=== PATIENT | female | born 1975 | race Caucasian/White ===

== ENCOUNTER → 2018-08-04 09:01 | Outpatient (CLI) | payer OTHER, MEDICAID, SELFPAY ==
[2018-08-04 09:52] LABS: Add Manual Diff / Slide Review NO; Basophils Percent Auto 0.8 % (0-2); Eosinophils Percent Auto 4.2 % (2-4); Hematocrit 40.3 % (36-46); Hemoglobin 13.4 g/dL (12.0-16.0); Lymphocytes Percent Auto 35.7 % (25-40); Mean Corpuscular HGB Conc 33.3 % (30-36); Mean Corpuscular Hemoglobin 29.8 PG (26-34); Mean Corpuscular Volume 89.4 fL (80-100); Monocytes Percent Auto 10.9 % (3-14); Neutrophils Absolute Auto 2400 /uL (3000-5900); Neutrophils Percent Auto 48.4 % (50-75); Platelet Count 275 X10^3/uL (150-400); Red Blood Cell Count 4.51 X10^6/uL (4.0-5.2); White Blood Cell Count 4.9 X10^3/uL (4.5-11.0)
[2018-08-04 10:14] LABS: Cholesterol 185 mg/dL (140-199); HDL Cholesterol 67 mg/dL (40-60); LDL Cholesterol Calculated 100 mg/dL (<100); Triglycerides 89 mg/dL (35-150)
[2018-08-04 10:26] LABS: Free T4, Direct Thyroxine 1.23 ng/dL (0.78-2.19)
[2018-08-04 10:28] LABS: Vitamin D 25 Hydroxy (D3) 34.5 ng/mL (30.0-100.0)
[2018-08-04 10:40] LABS: Thyroid Stimulating Hormone 0.29 uIU/mL (0.47-4.68)
== END ==
PROVIDERS: Visit Provider Student in an Organized Health Care Education/Training Program
DX: E03.9 Hypothyroidism, unspecified (principal); E55.9 Vitamin D deficiency, unspecified; E78.2 Mixed hyperlipidemia; J30.2 Other seasonal allergic rhinitis
CPT/HCPCS: 36415; 80061; 82306; 84439; 84443; 85025

== ENCOUNTER → 2019-05-25 14:02 | Outpatient (CLI) | payer OTHER, SELFPAY ==
--- NOTE | 2019-05-25 14:06 | DI.RAD.S_ITS ---
PROCEDURE: XR CHEST 2V INDICATIONS: cough TECHNIQUE: 2 views of the chest were acquired. COMPARISON: None. FINDINGS: Surgical changes and devices: None. Lungs and pleura: Lungs are clear. No pleural effusions or pneumothorax. Mediastinum: Mediastinal contours are normal. Heart size is normal. Bones and chest wall: No suspicious bony abnormalities. Soft tissues appear unremarkable. IMPRESSION: No evidence acute pulmonary process. Dictated by: Khai Michele M.D. on 05/25/2019 at 14:38 Approved by: Khai Michele M.D. on 05/25/2019 at 14:40
== END ==
PROVIDERS: Family Provider Student in an Organized Health Care Education/Training Program; PCP Student in an Organized Health Care Education/Training Program; Visit Provider Physician Assistant
DX: R05 Cough (principal)
CPT/HCPCS: 71046

== ENCOUNTER → 2019-05-31 07:58 | Outpatient (CLI) | payer OTHER, SELFPAY ==
[2019-05-31 08:35] LABS: Add Manual Diff / Slide Review NO; Basophils Absolute Auto 100 /uL (0-100); Eosinophils Absolute Auto 200 /uL (0-450); Eosinophils Percent Auto 3.4 % (2-4); Hematocrit 40.8 % (36-46); Hemoglobin 14.1 g/dL (12.0-16.0); Lymphocytes Absolute Auto 1800 /uL (1100-4500); Mean Corpuscular HGB Conc 34.5 % (30-36); Mean Corpuscular Hemoglobin 30.2 PG (26-34); Mean Corpuscular Volume 87.5 fL (80-100); Monocytes Absolute Auto 600 /uL (0-900); Monocytes Percent Auto 11.7 % (3-14); Neutrophils Absolute Auto 2500 /uL (1500-7000); Neutrophils Percent Auto 48.9 % (50-75); Platelet Count 335 X10^3/uL (150-400); Red Blood Cell Count 4.66 X10^6/uL (4.0-5.2); Red Cell Distribution Width 13.5 % (11.6-14.8); White Blood Cell Count 5.2 X10^3/uL (4.5-11.0)
[2019-05-31 09:01] LABS: Alanine Aminotransferase 18 IU/L (9-52); Albumin 4.4 g/dL (3.5-5.0); Albumin Globulin Ratio 1.3 (1.0-2.8); Alkaline Phosphatase 42 U/L (38-126); Aspartate Aminotransferase 28 IU/L (14-36); Bilirubin Total 0.6 mg/dL (0.2-1.3); Blood Urea Nitrogen 12 mg/dL (7-17); Calcium 9.7 mg/dL (8.4-10.2); Carbon Dioxide 27 mmol/L (22-32); Chloride 101 mmol/L (98-107); Estimated Glomerular Filt Rate > 60.0 mL/min (>60); Globulin 3.3 g/dL (1.7-4.1); Glucose 88 mg/dL (70-100); HEMOLYSIS < 15 (0-50); Potassium 4.1 mmol/L (3.4-5.1); Sodium 139 mmol/L (137-145); Total Protein 7.7 g/dL (6.3-8.2)
[2019-05-31 09:19] LABS: Vitamin D 25 Hydroxy (D3) 35.2 ng/mL (30.0-100.0)
[2019-05-31 09:31] LABS: Thyroid Stimulating Hormone 2.05 uIU/mL (0.47-4.68)
[2019-05-31 09:32] LABS: Cortisol AM (Before 10AM) 7.32 ug/dL (4.46-22.7)
[2019-05-31 09:51] LABS: Vitamin B12 596 pg/mL (239-931)
[2019-06-03 14:31] LABS: ANA Screen, IFA NEGATIVE (NEGATIVE)
== END ==
PROVIDERS: PCP Student in an Organized Health Care Education/Training Program; Visit Provider Student in an Organized Health Care Education/Training Program
DX: E03.9 Hypothyroidism, unspecified (principal); E05.00 Thyrotoxicosis with diffuse goiter without thyrotoxic crisis or storm; R53.83 Other fatigue; Z79.899 Other long term (current) drug therapy; E55.9 Vitamin D deficiency, unspecified
CPT/HCPCS: 36415; 80053; 82306; 82533; 82607; 84443; 85025; 86038

== ENCOUNTER → 2019-06-14 07:57 | Outpatient (CLI) | payer OTHER, SELFPAY ==
--- NOTE | 2019-06-14 | DI.MG.S_ITS ---
BILATERAL DIGITAL SCREENING MAMMOGRAM 3D/2D WITH CAD: 06/14/2019 CLINICAL: Routine screening. Comparison is made to exams dated: 04/22/2017 mammogram and 04/29/2018 mammogram - [facility]. The tissue of both breasts is heterogeneously dense. This may lower the sensitivity of mammography. Current study was also evaluated with a Computer Aided Detection (CAD) system. No significant masses, calcifications, or other findings are seen in either breast. There has been no significant interval change. IMPRESSION: NEGATIVE There is no mammographic evidence of malignancy. A 1 year screening mammogram is recommended. This exam was interpreted at Station ID: [id number]. NOTE: For mammograms, a report in lay terms will be sent to the patient. Approximately 15% of breast malignancies will not be visualized mammographically. In the management of a palpable breast mass, a negative mammogram must not discourage biopsy of a clinically suspicious lesion. Electronically Signed By: Talya dallas/rob:06/14/2019 10:49:10 letter sent: Normal Exam ACR BI-RADS Category 1: Negative 3341F
== END ==
PROVIDERS: PCP Student in an Organized Health Care Education/Training Program; Visit Provider Student in an Organized Health Care Education/Training Program
DX: Z12.31 Encounter for screening mammogram for malignant neoplasm of breast (principal)
CPT/HCPCS: 77063; 77067

== ENCOUNTER → 2019-09-13 15:29 | Outpatient (CLI) | payer OTHER, SELFPAY ==
[2019-09-13 17:47] LABS: TSH w/ Reflex to FT4 1.79 uIU/mL (0.47-4.68)
== END ==
PROVIDERS: PCP Student in an Organized Health Care Education/Training Program; Visit Provider Student in an Organized Health Care Education/Training Program
DX: E03.9 Hypothyroidism, unspecified (principal)
CPT/HCPCS: 36415; 84443

== ENCOUNTER → 2020-04-18 15:46 | Outpatient (CLI) | payer OTHER, SELFPAY ==
--- NOTE | 2020-04-18 15:47 | DI.US.S_ITS ---
PROCEDURE: US PELVIC COMPLETE INDICATIONS: IRREGULAR MENSES TECHNIQUE: Real-time scanning was performed of the pelvic organs, with image documentation. Additional endovaginal scanning was necessary due to incomplete visualization of the adnexal and endometrial structures by transabdominal scanning. COMPARISON: None. FINDINGS: Transabdominal scanning: A mild amount of free pelvic fluid is seen, which is considered to be within physiologic limits. Limited scanning through the kidneys shows no hydronephrosis. Endovaginal scanning: Uterus: Uterus is normal in size at 9 x 4.2 x 5.3 cm. The endometrium measures at the upper limits of normal at 17 mm in combined thickness. Incidental note is made of nabothian cysts. Ovaries: The right ovary measures 3.6 x 2.2 x 2.4 cm. The left ovary measures 3.9 x 2 x 2.6 cm. The ovaries have a normal sonographic appearance, with a dominant follicle within the left ovary that measures up to 1.9 cm, which may represent a corpus luteum. Within the right adnexal region, there are interconnecting cystic-appearing foci seen, which are at least partially involving the right ovary. The largest individual right ovarian cyst measures up to 4.5 x 1.7 x 2.8 cm IMPRESSION: The endometrial stripe measures at the upper limits of normal at 17 mm. The right ovary demonstrates abnormal cysts, with the largest individual cyst measuring up to 4.5 cm. Although several of the cysts are clearly associated with the right ovary, differential diagnosis also includes hydrosalpinx and paraovarian cysts. At clinical discretion, a followup pelvic ultrasound is suggested in 6 weeks to assure resolution/ improvement. Dictated by: Rodriguez Duron M.D. on 04/19/2020 at 11:47 Approved by: Rodriguez Duron M.D. on 04/19/2020 at 11:51
== END ==
PROVIDERS: PCP Student in an Organized Health Care Education/Training Program; Referring Provider Obstetrics & Gynecology; Visit Provider Obstetrics & Gynecology
DX: N92.6 Irregular menstruation, unspecified (principal); N83.201 Unspecified ovarian cyst, right side
CPT/HCPCS: 76830; 76856

== ENCOUNTER → 2020-05-03 08:14 | Outpatient (CLI) | payer OTHER, SELFPAY ==
[2020-05-03 10:25] LABS: Prolactin 12.6 ng/mL (3.0-18.6)
[2020-05-03 10:41] LABS: Thyroid Stimulating Hormone 2.61 uIU/mL (0.47-4.68)
== END ==
PROVIDERS: PCP Student in an Organized Health Care Education/Training Program; Referring Provider Obstetrics & Gynecology; Visit Provider Obstetrics & Gynecology
DX: E03.9 Hypothyroidism, unspecified (principal)
CPT/HCPCS: 36415; 83001; 84146; 84439; 84443

== ENCOUNTER → 2020-08-21 10:33 | Outpatient (CLI) | payer OTHER, SELFPAY ==
--- NOTE | 2020-08-21 10:34 | DI.US.S_ITS ---
PROCEDURE: US PELVIC COMPLETE INDICATIONS: F/U Ovarian cyst TECHNIQUE: Real-time scanning was performed of the pelvic organs, with image documentation. Additional endovaginal scanning was necessary due to incomplete visualization of the adnexal and endometrial structures by transabdominal scanning. COMPARISON: [facility], , US PELVIC COMPLETE, 04/18/2020, 16:19. FINDINGS: Transabdominal scanning: Limited scanning through the kidneys shows no hydronephrosis. No pathologic free abdominal or pelvic fluid. Endovaginal scanning: Uterus: Uterus is normal in size at 9.2 x 4.1 x 5.6 cm. The endometrium measures 6.3 mm in combined thickness. Ovaries: Right ovary measures 4.5 x 2.2 x 3.0 cm and the left 2.8 x 1.8 x 2.1 cm. There are 2 mildly complex cyst associated with the right ovary largest measuring 2.1 x 1.5 x 1.9 cm and the smaller 2.0 x 1.6 x 1.8 cm. Overall, cysts appear decreased in size compared to prior examination. IMPRESSION: Interval decrease in complex right ovarian cyst with the largest today measuring 2.1 x 1.5 x 1.9 cm. Continued sonographic surveillance to resolution is recommended. Dictated by: Alan JENSEN Interpreted: Talya Augustine MD on 08/21/2020 at 12:50 Approved by: Talya Augustine M.D. on 08/21/2020 at 15:00
== END ==
PROVIDERS: PCP Student in an Organized Health Care Education/Training Program; Referring Provider Obstetrics & Gynecology; Visit Provider Obstetrics & Gynecology
DX: N83.291 Other ovarian cyst, right side (principal)
CPT/HCPCS: 76830; 76856

== ENCOUNTER → 2020-09-27 08:59 | Outpatient (CLI) | payer OTHER, SELFPAY ==
[2020-09-27 09:13] LABS: RBC Urine None Seen (0-5/HPF)
[2020-09-27 09:56] LABS: Appearance Urine UA CLEAR; Bilirubin Urine UA NEGATIVE (NEGATIVE); Glucose Urine UA NEGATIVE (Negative); Ketones Urine UA NEGATIVE (NEGATIVE); Leukocyte Esterase Urine UA 1+ (NEGATIVE); Nitrite Urine UA NEGATIVE (Negative); Occult Blood Urine UA 1+ (Negative); Protein Urine UA NEGATIVE (Negative); Specific Gravity Urine UA <=1.005 (1.000-1.035); Urobilinogen Urine UA 0.2 E.U./dL (0.2)
[2020-09-27 10:21] LABS: Color Urine UA Straw; Squamous Epithelial Cell Urine 1-5 /HPF (0-5/HPF); WBC Urine 5-10/HPF (0-5/HPF); pH Urine UA 6.5 (4.5-8.0)
[2020-09-27 10:22] LABS: Bacteria Urine Few (2-10); Culture Indicated Urine Specimen Cultured
== END ==
PROVIDERS: Specialist; PCP Student in an Organized Health Care Education/Training Program; Referring Provider Student in an Organized Health Care Education/Training Program; Visit Provider Obstetrics & Gynecology
DX: R30.0 Dysuria (principal)
CPT/HCPCS: 81001; 87077; 87086; 87147; 87186

== ENCOUNTER → 2020-12-11 08:57 | Outpatient (CLI) | payer OTHER, SELFPAY ==
--- NOTE | 2020-12-11 08:59 | DI.US.S_ITS ---
PROCEDURE: US PELVIC COMPLETE INDICATIONS: THREE MONTH FOLLOW UP RIGHT OVARIAN CYSTS TECHNIQUE: Real-time scanning was performed of the pelvic organs, with image documentation. Additional endovaginal scanning was necessary due to incomplete visualization of the adnexal and endometrial structures by transabdominal scanning. COMPARISON: [facility], , PELVIC COMPLETE, 04/18/2020, 16:19. [facility], , PELVIC COMPLETE, 08/21/2020, 10:49. FINDINGS: Uterus: Uterus is anteverted and normal in size at 7.0 x 5.9 x 4.0 cm. The endometrium measures nine mm in combined thickness. Tiny nabothian cysts are present at the cervix. Ovaries: The right ovary measures 5.7 x 4.1 x 3.2 cm and contains several follicles. There are two dominant cysts, both multi lobulated and one septated, and both slightly larger compared to the prior study. 1 measures 2.5 x 2.2 x 1.5 cm, previously 2.1 x 1.9 x 1.5 cm. The 2nd measures 2.9 x 1.9 x 1.8 cm, previously about 2.0 x 1.8 x 1.6 cm. No significant change in morphology. There is peripheral vascularity in the ovary. No discrete internal vascularity or vascularized septation. The left ovary measures 3.0 x 2.6 x 1.8 cm and contains a peripherally vascular corpus luteum measuring 1.2 cm. . Other: No pathologic free abdominal or pelvic fluid. IMPRESSION: 1. Minimal size increase but without significant morphologic change in the minimally complicated right ovarian cystic structures. Consider annual follow-up. Dictated by: Kristy Franks M.D. on 12/11/2020 at 13:49 Approved by: Kristy Franks M.D. on 12/11/2020 at 14:00
== END ==
PROVIDERS: PCP Student in an Organized Health Care Education/Training Program; Referring Provider Obstetrics & Gynecology; Visit Provider Obstetrics & Gynecology
DX: N83.209 Unspecified ovarian cyst, unspecified side (principal)
CPT/HCPCS: 76830; 76856

== ENCOUNTER → 2020-12-25 10:35 | Outpatient (CLI) | payer OTHER, SELFPAY ==
[2020-12-25 12:53] LABS: Cancer Antigen 125 9.3 U/mL (0-35)
[2020-12-27 10:12] LABS: Human Epididymis Prot 4 43.5 pmol/L (0.0-63.6)
== END ==
PROVIDERS: PCP Student in an Organized Health Care Education/Training Program; Referring Provider Obstetrics & Gynecology; Visit Provider Obstetrics & Gynecology
DX: N83.201 Unspecified ovarian cyst, right side (principal)
CPT/HCPCS: 36415; 86304; 86305

== ENCOUNTER → 2021-02-06 11:11 | Outpatient (CLI) | payer OTHER, SELFPAY ==
--- NOTE | 2021-02-06 11:12 | DI.US.S_ITS ---
PROCEDURE: US PELVIC COMPLETE INDICATIONS: F/U Ovarian Cyst TECHNIQUE: Real-time scanning was performed of the pelvic organs, with image documentation. Additional endovaginal scanning was necessary due to incomplete visualization of the adnexal and endometrial structures by transabdominal scanning. COMPARISON: [facility], , US PELVIC COMPLETE, 12/11/2020, 10:11. FINDINGS: Uterus: Uterus is normal in size at 5.8 x 4.1 x 5.6 cm. The endometrium measures 4 mm in combined thickness. Ovaries: Right ovary measures 4.0 x 2.6 x 3.6 cm. Left ovary measures 1.6 x 1.9 x 1.2 cm. Multi cystic focus within the right ovary measures 2.3 x 2.1 x 2.3 cm and 2.8 x 1.7 x 2.7 cm. Corresponding foci on prior exam measured 2.5 x 2.2 x 1.5 cm and 2.9 x 1.9 x 1.8 cm. Other: No pathologic free abdominal or pelvic fluid. IMPRESSION: Persistent complex right ovarian cyst, questionably minimally more prominent. Continued interval follow-up is recommended as indicated. Dictated by: Mena Durham M.D. on 02/06/2021 at 16:33 Approved by: Mena Durham M.D. on 02/06/2021 at 16:35
== END ==
PROVIDERS: PCP Student in an Organized Health Care Education/Training Program; Referring Provider Obstetrics & Gynecology; Visit Provider Obstetrics & Gynecology
DX: N83.201 Unspecified ovarian cyst, right side (principal)
CPT/HCPCS: 76830; 76856

== ENCOUNTER → 2021-03-13 07:40 | Outpatient (CLI) | payer OTHER, SELFPAY ==
--- NOTE | 2021-03-13 07:41 | DI.US.S_ITS ---
PROCEDURE: US PELVIC COMPLETE INDICATIONS: OVARIAN CYST TECHNIQUE: Real-time scanning was performed of the pelvic organs, with image documentation. Additional endovaginal scanning was necessary due to incomplete visualization of the adnexal and endometrial structures by transabdominal scanning. COMPARISON: [facility], PELVIC COMPLETE, 04/18/2020, 16:19. [facility], PELVIC COMPLETE, 08/21/2020, 10:49. [facility], PELVIC COMPLETE, 12/11/2020, 10:11. [facility], PELVIC COMPLETE, 02/06/2021, 10:27. FINDINGS: Uterus: Uterus is normal in size at 9.2 x 4.4 x 6 cm. The endometrium measures 20 mm in combined thickness. Ovaries: The right ovary measures 3.3 x 2.2 x 3 8 cm and demonstrates simple appearing cystic follicles that measure up to 2.1 cm, which are considered to within physiologic limits. The left ovary measures 3.5 x 1.7 x 3.3 cm and demonstrates a complex cyst that measures 1.8 x 1.3.1.5 cm with minimal internal vascularity. This is new compared to prior examination. No adnexal masses are seen. Other: No pathologic free abdominal or pelvic fluid. IMPRESSION: No abnormal right ovarian cysts are now seen. There is a complex cyst now seen of the left ovary which may represent a hemorrhagic cyst. If it would be clinically appropriate, a followup pelvic ultrasound could be considered in 6 weeks to assure resolution/ improvement. The endometrial stripe is abnormally thickened at 20 mm. Dictated by: Rodriguez Duron M.D. on 03/13/2021 at 8:15 Approved by: Rodriguez Duron M.D. on 03/13/2021 at 8:19
== END ==
PROVIDERS: PCP Student in an Organized Health Care Education/Training Program; Referring Provider Obstetrics & Gynecology; Visit Provider Obstetrics & Gynecology
DX: N83.292 Other ovarian cyst, left side (principal); R93.89 Abnormal findings on diagnostic imaging of other specified body structures
CPT/HCPCS: 76830; 76856

== ENCOUNTER → 2021-06-08 15:40 | Outpatient (CLI) | payer OTHER, SELFPAY ==
--- NOTE | 2021-06-08 15:41 | DI.MG.S_ITS ---
BILATERAL DIGITAL SCREENING MAMMOGRAM 3D/2D WITH CAD: 06/08/2021 CLINICAL: Routine screening. Comparison is made to exams dated: 06/14/2019 mammogram - [facility], 04/29/2018 mammogram, and 04/22/2017 mammogram - [facility]. The tissue of both breasts is heterogeneously dense. This may lower the sensitivity of mammography. Current study was also evaluated with a Computer Aided Detection (CAD) system. No significant masses, calcifications, or other findings are seen in either breast. There has been no significant interval change. IMPRESSION: NEGATIVE There is no mammographic evidence of malignancy. A 1 year screening mammogram is recommended. This exam was interpreted at Station ID: [id number]. NOTE: For mammograms, a report in lay terms will be sent to the patient. Approximately 15% of breast malignancies will not be visualized mammographically. In the management of a palpable breast mass, a negative mammogram must not discourage biopsy of a clinically suspicious lesion. Electronically Signed By: Polo bowen/rob:06/08/2021 17:17:52 letter sent: Normal Exam ACR BI-RADS Category 1: Negative 3341F
--- NOTE | 2021-06-08 15:41 | DI.US.S_ITS ---
PROCEDURE: US PELVIC COMPLETE INDICATIONS: PELVIC PAIN TECHNIQUE: Real-time scanning was performed of the pelvic organs, with image documentation. Additional endovaginal scanning was necessary due to incomplete visualization of the adnexal and endometrial structures by transabdominal scanning. COMPARISON: [facility], US, US PELVIC COMPLETE, 03/13/2021, 8:11. FINDINGS: Uterus: Uterus is normal in size at 8.6 x 4.5 x 4.9 cm. The endometrium measures 8 0.7 mm in combined thickness. Ovaries: Physiologic cyst associated with the left ovary measuring 2.3 cm. Multiple simple cyst associated with the right ovary, largest measuring 2.6 cm. Other: No pathologic free abdominal or pelvic fluid. IMPRESSION: 1. Thickened endometrial complex. Short-term follow-up pelvic ultrasound in 6-12 weeks is recommended to assess for interval thinning. 2. Regressing left physiologic cyst and simple cysts involving the left ovary. Dictated by: Alan JENSEN Interpreted: Francesco Almaguer MD on 06/08/2021 at 16:35 Transcribed by: PARESH on 06/08/2021 at 16:36 Approved by: Francesco Almaguer M.D. on 06/08/2021 at 16:38
== END ==
PROVIDERS: PCP Student in an Organized Health Care Education/Training Program; Referring Provider Obstetrics & Gynecology; Visit Provider Obstetrics & Gynecology
DX: R10.2 Pelvic and perineal pain (principal); Z12.31 Encounter for screening mammogram for malignant neoplasm of breast; N83.202 Unspecified ovarian cyst, left side
CPT/HCPCS: 76830; 76856; 77063; 77067

== ENCOUNTER → 2022-03-13 08:03 | Outpatient (CLI) | payer OTHER, SELFPAY ==
[2022-03-13 09:43] LABS: Thyroid Stimulating Hormone 2.49 uIU/mL (0.47-4.68)
== END ==
PROVIDERS: PCP Family Medicine; Referring Provider Family Medicine; Visit Provider Family Medicine
DX: E03.9 Hypothyroidism, unspecified (principal)
CPT/HCPCS: 36415; 84443

== ENCOUNTER → 2022-03-14 15:10 | Outpatient (CLI) | payer OTHER, SELFPAY | PROVIDERS: PCP Family Medicine; Visit Provider Physician Assistant | DX: R10.2 Pelvic and perineal pain (principal) | CPT/HCPCS: 87086 ==

== ENCOUNTER → 2022-03-26 07:57 | Outpatient (CLI) | payer OTHER, SELFPAY ==
--- NOTE | 2022-03-26 07:58 | DI.US.S_ITS ---
PROCEDURE: US ABDOMEN COMPLETE INDICATIONS: BLOATING, NAUSEA TECHNIQUE: Real-time scanning was performed of the abdominal and retroperitoneal organs, with image documentation. COMPARISON: None. FINDINGS: Liver: Liver is normal in size and homogeneous in echotexture. Gallbladder: Normal. Biliary ducts: Intrahepatic bile ducts are non-dilated. Extrahepatic bile duct caliber measures 3 mm. Normal is 6-7 mm or less in diameter, or 10 mm or less post-cholecystectomy. Pancreas: Visualized portions of the pancreas are sonographically normal. Spleen: Spleen is normal in size and homogeneous in echotexture. Kidneys: Normal. Aorta: Visualized aorta is normal in caliber at less than 3 cm. Iliacs: Proximal common iliac arteries are normal in caliber at less than 2.5 cm. IVC: Intrahepatic inferior vena cava is patent. Miscellaneous: No free abdominal fluid. IMPRESSION: Normal study. Dictated by: Luis Antonio Deng M.D. on 03/26/2022 at 9:11 Approved by: Luis Antonio Deng M.D. on 03/26/2022 at 9:11
--- NOTE | 2022-03-26 07:58 | DI.US.S_ITS ---
PROCEDURE: US PELVIC COMPLETE INDICATIONS: PAIN, BLOATING TECHNIQUE: Real-time scanning was performed of the pelvic organs, with image documentation. Additional endovaginal scanning was necessary due to incomplete visualization of the adnexal and endometrial structures by transabdominal scanning. COMPARISON: [facility], US, US ABDOMEN COMPLETE, 03/26/2022, 8:04. [facility], US, US PELVIC COMPLETE, 06/08/2021, 15:58. FINDINGS: Uterus: Uterus is anteverted and normal in size at 8.4 x 4.4 x 5.8 cm. The myometrium is homogeneous. The endometrium measures 13-14 mm combined thickness, which is now considered to be within normal limits Ovaries: The right ovary measures 3.5 x 2 x 3.5 cm. The left ovary measures 3.1 x 2.6 x 1.6 cm. The ovaries have a normal sonographic appearance, with bilateral simple appearing cystic follicles seen involving each ovary, which are considered to be within physiologic limits. No adnexal masses are seen. Other: No pathologic free abdominal or pelvic fluid. IMPRESSION: The endometrial stripe measures 13-14 mm, which is considered to be within physiologic limits. Simple appearing cystic follicles can be seen involving each ovary, which are also considered to be within physiologic limits. We strive to produce accurate, complete, and clear reports of imaging services. To assist us in improving patient care, this report was composed using standard report templates and voice recognition software. Therefore, it may contain abnormal punctuation, insertions and/or omissions. Occasional wrong-word or sound-alike substitutions may occur. Though we review the report and make efforts to correct it, we do recommend that the report be read carefully in proper context to recognize any text inaccuracies. Dictated by: Rodriguez Duron M.D. on 03/26/2022 at 9:01 Approved by: Rodriguez Duron M.D. on 03/26/2022 at 9:03
== END ==
PROVIDERS: PCP Family Medicine; Referring Provider Physician Assistant; Visit Provider Physician Assistant
DX: R10.2 Pelvic and perineal pain (principal); R10.30 Lower abdominal pain, unspecified; R10.32 Left lower quadrant pain; R10.31 Right lower quadrant pain; R11.0 Nausea
CPT/HCPCS: 76700; 76830; 76856

== ENCOUNTER → 2022-04-09 12:33 | Outpatient (CLI) | payer OTHER, SELFPAY ==
[2022-04-09 13:21] LABS: Appearance Urine UA CLEAR; Bilirubin Urine UA NEGATIVE (NEGATIVE); Color Urine UA YELLOW; Glucose Urine UA NEGATIVE (Negative); Ketones Urine UA NEGATIVE (NEGATIVE); Leukocyte Esterase Urine UA NEGATIVE (NEGATIVE); Nitrite Urine UA NEGATIVE (Negative); Occult Blood Urine UA TRACE-LYSED (Negative); Protein Urine UA NEGATIVE (Negative); Urobilinogen Urine UA 0.2 E.U./dL (0.2)
[2022-04-09 13:22] LABS: pH Urine UA 6.5 (4.5-8.0)
[2022-04-09 13:34] LABS: Amorphous Sediment Urine 1+; Bacteria Urine Few (2-10); Culture Indicated Urine Cult Not Indicated; RBC Urine 0-1/HPF (0-5/HPF); Squamous Epithelial Cell Urine 5-10 /HPF (0-5/HPF); WBC Urine 1-5/HPF (0-5/HPF)
== END ==
PROVIDERS: PCP Family Medicine; Referring Provider Obstetrics & Gynecology; Visit Provider Obstetrics & Gynecology
DX: N39.0 Urinary tract infection, site not specified (principal)
CPT/HCPCS: 81001

== ENCOUNTER → 2022-06-17 15:34 | Outpatient (CLI) | payer OTHER, SELFPAY ==
--- NOTE | 2022-06-17 | DI.MG.S_ITS ---
BILATERAL DIGITAL SCREENING MAMMOGRAM 3D/2D WITH CAD: 06/17/2022 CLINICAL: Routine screening. Comparison is made to exams dated: 06/08/2021 mammogram, 06/14/2019 mammogram - [facility], and 04/29/2018 mammogram - [facility]. Both breasts are heterogeneously dense, which may obscure small masses (category c / 51-75% glandular tissue). Current study was also evaluated with a Computer Aided Detection (CAD) system. No significant masses, calcifications, or other findings are seen in either breast. There has been no significant interval change. IMPRESSION: NEGATIVE There is no mammographic evidence of malignancy. A 1 year screening mammogram is recommended. Based on the Tyrer Cuzick model (a risk assessment model) the patient's lifetime risk is 13.3% and her 10 year risk is 2.6%. According to the ACR, ACS, and NCCN guidelines, an annual breast MRI exam along with mammogram is recommended if the patient's lifetime risk is 20% or greater. This exam was interpreted at Station ID: [id number]. NOTE: For mammograms, a report in lay terms will be sent to the patient. Approximately 15% of breast malignancies will not be visualized mammographically. In the management of a palpable breast mass, a negative mammogram must not discourage biopsy of a clinically suspicious lesion. Electronically Signed By: Polo bowen/rob:06/18/2022 07:53:25 letter sent: Normal Exam ACR BI-RADS Category 1: Negative 3341F
== END ==
PROVIDERS: PCP Family Medicine; Referring Provider Family Medicine; Visit Provider Family Medicine
DX: Z12.31 Encounter for screening mammogram for malignant neoplasm of breast (principal)
CPT/HCPCS: 77063; 77067

== ENCOUNTER 2022-07-16 09:04 | Emergency (ER) | payer OTHER, SELFPAY ==
[2022-07-16 09:28] VITALS: BP 134/79; PULSE 85; RESP 16; TEMP 36.9; O2SAT 99; BMI 24.2
--- NOTE | 2022-07-16 09:30 | DI.RAD.S_ITS ---
PROCEDURE: XR CHEST 2V INDICATIONS: coughing, L rib pain TECHNIQUE: 2 views of the chest were acquired. COMPARISON: [facility], CR, XR CHEST 2V, 05/25/2019, 14:04. FINDINGS: Surgical changes and devices: None. Lungs and pleura: Lungs are clear. No pleural effusions or pneumothorax. Mediastinum: Mediastinal contours are normal. Heart size is normal. Bones and chest wall: No suspicious bony abnormalities. Soft tissues appear unremarkable. IMPRESSION: No acute cardiopulmonary process demonstrated radiographically. Dictated by: Luis Antonio Deng M.D. on 07/16/2022 at 9:52 Approved by: Luis Antonio Deng M.D. on 07/16/2022 at 9:52
[2022-07-16 10:21] LABS: Influenza A - CEPHEID Flu A NEGATIVE (NEGATIVE); Influenza B - CEPHEID Flu B NEGATIVE (NEGATIVE); Respiratory Syncytial Virus Negative (Negative)
[2022-07-16 10:48] LABS: COVID-19 CEPHEID 4-PLEX PCR Negative (Negative)
--- NOTE | 2022-07-16 11:27 | ED_ITS ---
HPI - General Adult General Chief complaint: Upper Respiratory Symptoms Stated complaint: flu symtoms t-14 chest pain lower lf side weak Time Seen by Provider: 07/16/22 09:21 Source: patient Mode of arrival: Family Vehicle Limitations: no limitations History of Present Illness HPI narrative: Patient is a 47-year-old otherwise healthy female who is here for evaluation of approximately 7-10 days of influenza like symptoms. She is been coughing, having fevers, shortness of breath, generally not feeling very well and now this morning left-sided chest discomfort. States that was of sudden onset and very sharp. Localized to her left lower ribs. Never had anything like this in the past. Has not tried anything specifically for it. Related Data Previous Rx's Medication Instructions Recorded doxepin 10 mg capsule 10 mg PO DAILY #90 caps 04/18/22 levothyroxine 125 mcg tablet 125 mcg PO DAILY #90 tabs 05/14/22 (Levoxyl) Allergies Allergy/AdvReac Type Severity Reaction Status Date / Time Steroids AdvReac Headache Uncoded 03/14/22 14:51 Review of Systems Constitutional Constitutional: Reports system reviewed and no additional complaints, except as documented Cardiovascular Cardiovascular: Reports system reviewed and no additional complaints, except as documented Respiratory Respiratory: Reports system reviewed and no additional complaints, except as documented Gastrointestinal Gastrointestinal: Reports system reviewed and no additional complaints, except as documented Musculoskeletal Musculoskeletal: Reports system reviewed and no additional complaints, except as documented Integumentary/Breasts Skin/Breast: Reports system reviewed and no additional complaints, except as documented Patient History Medical History Bilateral lower abdominal pain Chicken pox Contusion of nail bed of toe Hyperthyroidism Onychodystrophy Onychomycosis Rosacea Toe pain, bilateral Surgical History Anesthesia History of appendectomy History of section Social History Smoking Status: Never smoker Smoking Status: Never smoker Exam Initial Vital Signs Initial Vital Signs: Vital Signs Temperature 98.5 F 07/16/22 09:28 Pulse Rate 85 07/16/22 09:28 Respiratory Rate 16 07/16/22 09:28 Blood Pressure 134/79 07/16/22 09:28 Pulse Oximetry 99 07/16/22 09:28 Oxygen Delivery Method 07/16/22 09:28 Const General: cooperative and comfortable HENMT Head: normal to inspection and normocephalic Chest Other: Reproducible left-sided chest wall discomfort Resp Effort & Inspection: normal respiratory effort Auscultation: clear to auscultation bilaterally Cardio Rate: regular rate Rhythm: regular rhythm Skin General: no rashes or lesions noted Neuro General: patient alert, patient awake and patient oriented x3 Extrem General: normal to inspection Course Orders Ordered: ED Orders 07/16/22 09:30 XR chest 2V Stat 07/16/22 09:42 Covid-19 + FLU A/B + RSV - PCR Stat Vital Signs Vital signs: Vital Signs - 8 hr 07/16/22 09:28 Temperature 98.5 F Pulse Rate 85 Respiratory Rate 16 Blood Pressure 134/79 Pulse Oximetry 99 Oxygen Delivery Method Room Air Medical Decision Making Lab Data Labs: Lab Results 07/16/22 Range/Units 09:42 SARS-CoV-2 (PCR) Negative (Negative) Influenza A (RT-PCR) Flu a negative (NEGATIVE) Influenza B (RT-PCR) Flu b negative (NEGATIVE) RSV (PCR) Negative (Negative) Imaging Data Chest x-ray: Radiologist's Impression: [place] [id number] XRay Report Signed Patient: Oscar Modi MR#: [id number] : 1975 Acct:[id number] Age/Sex: 47 / F Date of Service: 07/16/22 Loc: ED Accession Number: [id number] ?? Procedure: XR chest 2V Ordering Provider: Pola Melton D.O. PROCEDURE:? XR CHEST 2V ? INDICATIONS:? coughing, L rib pain ? TECHNIQUE:? 2 views of the chest were acquired.? ? COMPARISON:? [facility], , XR CHEST 2V, 05/25/2019, 14:04. ? FINDINGS:? ? Surgical changes and devices:? None.? ? Lungs and pleura:? Lungs are clear.? No pleural effusions or pneumothorax.? ? Mediastinum:? Mediastinal contours are normal.? Heart size is normal.? ? Bones and chest wall:? No suspicious bony abnormalities.? Soft tissues appear unremarkable.? ? IMPRESSION:? No acute cardiopulmonary process demonstrated radiographically. ? ? Dictated by: Luis Antonio Dneg M.D. on 07/16/2022 at 9:52 ? ? Approved by: Luis Antonio Deng M.D. on 07/16/2022 at 9:52?? MDM Narrative Medical decision making narrative: Nontoxic appearing. Afebrile. Chest x-ray is unremarkable. Respiratory panel is negative. No indication for antibiotics. I do suspect that this is spasm of the intercostal muscles given her presenting symptoms. Reassured patient. She would take Tylenol and ibuprofen. She was given return precautions. She expressed understanding and agreement. Discharge Plan Departure Patient Disposition: Home Clinical Impression: Acute chest wall pain, Influenza-like illness Activity Restrictions/Additional Instructions: Based on your workup here in the emergency department there is no indication for any antibiotics. You can continue to take Tylenol/ibuprofen for discomfort. Contact your primary doctor for follow-up. Prescriptions: No Action doxepin 10 mg capsule 10 mg PO DAILY Qty: 90 0RF Rx Instructions: PT WILL NEED TO BE SEEN BEFORE NEXT FILL 01/16/22 levothyroxine [Levoxyl] 125 mcg tablet 125 mcg PO DAILY Qty: 90 0RF Referrals: Ella Zamora MD [Primary Care Provider] -
== END 2022-07-16 11:41 | disposition home or self-care (01) ==
PROVIDERS: Emergency Provider Emergency Medicine; PCP Family Medicine
DX: R07.89 Other chest pain (principal); J11.1 Influenza due to unidentified influenza virus with other respiratory manifestations; Z20.822 Contact with and (suspected) exposure to COVID-19
CPT/HCPCS: 0241U; 71046; 99283

== ENCOUNTER → 2023-04-29 10:17 | Outpatient (CLI) | payer OTHER, SELFPAY ==
--- NOTE | 2023-04-29 10:18 | DI.RAD.S_ITS ---
PROCEDURE: XR FOOT LT MIN 3V INDICATIONS: L foot pain TECHNIQUE: 3 views of the foot were acquired. COMPARISON: None. FINDINGS: Bones: No fractures or dislocations. No suspicious bony lesions. Soft tissues: No tibiotalar joint effusion. Achilles tendon appears normal. IMPRESSION: Normal left foot radiographs Approved by: Kehinde Holland M.D. on 04/29/2023 at 13:42
== END ==
PROVIDERS: PCP Family Medicine; Referring Provider Family Medicine; Visit Provider Family Medicine
DX: M79.672 Pain in left foot (principal)
CPT/HCPCS: 73630

== ENCOUNTER → 2023-05-08 15:47 | Outpatient (CLI) | payer OTHER, SELFPAY ==
[2023-05-08 17:51] LABS: TSH w/ Reflex to FT4 2.72 uIU/mL (0.47-4.68)
== END ==
PROVIDERS: PCP Family Medicine; Referring Provider Family Medicine; Visit Provider Family Medicine
DX: E03.9 Hypothyroidism, unspecified (principal)
CPT/HCPCS: 36415; 84443

== ENCOUNTER → 2023-06-10 15:10 | Outpatient (CLI) | payer OTHER, SELFPAY ==
--- NOTE | 2023-06-10 | DI.MRI.S_ITS ---
PROCEDURE: MRFOOT LT WO CON INDICATIONS: Left 4th toe contusion TECHNIQUE: Noncontrast sagittal T1 spin echo and T2 fast spin echo with fat saturation, long-axis T1 spin echo and STIR, short-axis T1 spin echo and T2 fast spin echo with fat saturation through the forefoot. COMPARISON: [facility], CR, XR FOOT LT MIN 3V, 04/29/2023, 10:30. [facility], CR, XR TOE(S) LEFT, 05/27/2023, 10:48. FINDINGS: Image quality: Excellent. Bones and joints: Osseous edema is seen within the 4th middle and distal phalanges. No definite well-defined fracture line or displacement is seen. Osseous structures are otherwise normal in signal intensity. Mild degenerative changes at the 1st metatarsophalangeal joint. The sesamoid bones appear in expected positions, without internal edema. No intraosseous lesions. Soft tissues: Mild soft tissue edema is seen within the 4th toe. The visualized plantar foot muscles demonstrate normal signal and bulk. Visualized flexor and extensor tendons appear intact, without tenosynovitis. The distal insertions of the peroneus brevis and longus tendons appear intact. The principal Lisfranc ligament appears intact. No soft tissue ganglion cysts or bursal fluid collections. Sagittal images demonstrate no evidence for plantar plate tears. IMPRESSION: Osseous edema within the 4th middle and distal phalanges is suspicious for osseous contusions. No definite fracture line or osseous displacement is seen. No significant ligament or tendon injury is seen. Approved by: Sav Le M.D. on 06/11/2023 at 9:22
== END ==
PROVIDERS: PCP Family Medicine; Referring Provider Podiatrist; Visit Provider Podiatrist
DX: S90.122A Contusion of left lesser toe(s) without damage to nail, initial encounter (principal); X58.XXXA Exposure to other specified factors, initial encounter
CPT/HCPCS: 73718

== ENCOUNTER → 2023-06-24 15:31 | Outpatient (CLI) | payer OTHER, SELFPAY ==
--- NOTE | 2023-06-24 | DI.MG.S_ITS ---
BILATERAL DIGITAL SCREENING MAMMOGRAM 3D/2D WITH CAD: 06/24/2023 CLINICAL: Routine screening. Family history of breast cancer. Comparison is made to exams dated: 06/17/2022 mammogram, 06/08/2021 mammogram, and 06/14/2019 mammogram - [facility]. Both breasts are heterogeneously dense, which may obscure small masses (category c / 51-75% glandular tissue). Current study was also evaluated with a Computer Aided Detection (CAD) system. No significant masses, calcifications, or other findings are seen in either breast. There has been no significant interval change. IMPRESSION: NEGATIVE There is no mammographic evidence of malignancy. A 1 year screening mammogram is recommended. Based on the Tyrer Cuzick model (a risk assessment model) the patient's lifetime risk is 13.5% and her 10 year risk is 2.8%. According to the ACR, ACS, and NCCN guidelines, an annual breast MRI exam along with mammogram is recommended if the patient's lifetime risk is 20% or greater. This exam was interpreted at Station ID: [id number]. NOTE: For mammograms, a report in lay terms will be sent to the patient. Approximately 15% of breast malignancies will not be visualized mammographically. In the management of a palpable breast mass, a negative mammogram must not discourage biopsy of a clinically suspicious lesion. Electronically Signed By: Polo bowen/rob:06/25/2023 07:17:37 letter sent: Normal Exam ACR BI-RADS Category 1: Negative [id number]
== END ==
PROVIDERS: PCP Family Medicine; Referring Provider Family Medicine; Visit Provider Family Medicine
DX: Z12.31 Encounter for screening mammogram for malignant neoplasm of breast (principal); Z80.3 Family history of malignant neoplasm of breast
CPT/HCPCS: 77063; 77067

== ENCOUNTER → 2023-09-29 08:05 | Outpatient (CLI) | payer OTHER, SELFPAY ==
[2023-09-29 08:55] LABS: Add Manual Diff / Slide Review NO; Basophils Absolute Auto 100 /uL (0-100); Basophils Percent Auto 0.8 % (0-2); Eosinophils Absolute Auto 300 /uL (0-450); Hematocrit 40.2 % (36-46); Hemoglobin 13.7 g/dL (12.0-16.0); Lymphocytes Absolute Auto 2100 /uL (1100-4500); Lymphocytes Percent Auto 31.6 % (25-40); Mean Corpuscular Hemoglobin 29.7 PG (26-34); Mean Corpuscular Volume 87.3 fL (80-100); Monocytes Absolute Auto 800 /uL (0-900); Monocytes Percent Auto 11.7 % (3-14); Neutrophils Absolute Auto 3500 /uL (1500-7000); Neutrophils Percent Auto 51.9 % (50-75); Platelet Count 312 X10^3/uL (150-400); Red Cell Distribution Width 14.7 % (11.6-14.8); White Blood Cell Count 6.7 X10^3/uL (4.5-11.0)
[2023-09-29 09:06] LABS: Alanine Aminotransferase 22 IU/L (<35); Albumin 4.4 g/dL (3.5-5.0); Albumin Globulin Ratio 1.2 (1.0-2.8); Alkaline Phosphatase 37 U/L (38-126); Aspartate Aminotransferase 33 IU/L (14-36); BUN Creatinine Ratio 15.8 (6-22); Bilirubin Total 0.5 mg/dL (0.2-1.3); Blood Urea Nitrogen 12 mg/dL (7-17); Carbon Dioxide 23 mmol/L (22-32); Chloride 103 mmol/L (98-107); Cholesterol 224 mg/dL (140-199); Estimated Glomerular Filt Rate > 60 mL/min (>60); Globulin 3.8 g/dL (1.7-4.1); Glucose 78 mg/dL (70-100); HDL Cholesterol 64 mg/dL (40-60); HEMOLYSIS 28 (0-50); LDL Cholesterol Calculated 131 mg/dL (<100); Potassium 4.6 mmol/L (3.4-5.1); Sodium 136 mmol/L (137-145); Total Protein 8.2 g/dL (6.3-8.2); Triglycerides 145 mg/dL (35-150)
[2023-09-29 09:41] LABS: Microalbumin Urine Random < 0.6 mg/dL (0-1.6)
== END ==
LOC: LAB 08:05
PROVIDERS: PCP Family Medicine; Referring Provider Family Medicine; Visit Provider Family Medicine
DX: I10 Essential (primary) hypertension (principal)
CPT/HCPCS: 36415; 80053; 80061; 82043; 82570; 85025

== ENCOUNTER → 2023-11-14 13:04 | Outpatient (CLI) | payer OTHER, SELFPAY ==
--- NOTE | 2023-11-14 13:05 | DI.CT.S_ITS ---
PROCEDURE: CT SINUS SCREEN WO CON INDICATIONS: CHRONIC PANSINUSITIS TECHNIQUE: Noncontrast 3.0 mm axial images acquired from the frontal sinuses to the mid-sella, with coronal and sagittal reformats. For radiation dose reduction, the following was used: automated exposure control, adjustment of mA and/or kV according to patient size. COMPARISON: None. FINDINGS: Image quality: There is artifact associated with the metallic earring. Maxillary Sinuses: Moderate mucosal thickening can be seen within the maxillary sinuses. The superior medial yanes of the maxillary sinuses have been removed. Ethmoid Air Cells: Portions of the ethmoid air cell septations have been removed. Minimal to mild mucosal thickening can be seen within the remaining ethmoid air cells. Sphenoid Sinuses: No bony remodeling or destruction. Sinuses are clear. Frontal Sinuses: No bony remodeling or destruction. Mild mucosal thickening can be seen within the inferior medial left frontal sinus. Ostiomeatal Complexes: Removed. Miscellaneous: Visualized intra-orbital contents are normal. No nae bullosa or paradoxical turbinate curvature. No nasal septal deviation. IMPRESSION: Moderate mucosal thickening can be seen, with milder mucosal thickening seen elsewhere within the paranasal sinuses. Prior postoperative change can be seen, with bilateral antrectomy. Dictated by: Rodriguez Duron M.D. on 11/14/2023 at 12:31 Approved by: Rodriguez Duron M.D. on 11/14/2023 at 12:33
== END ==
LOC: CT 13:04
PROVIDERS: PCP Family Medicine; Referring Provider Otolaryngology; Visit Provider Otolaryngology
DX: J32.4 Chronic pansinusitis (principal); J34.89 Other specified disorders of nose and nasal sinuses; G44.89 Other headache syndrome
CPT/HCPCS: 70486

== ENCOUNTER → 2023-11-26 09:54 | Outpatient (CLI) | payer OTHER, SELFPAY ==
--- NOTE | 2023-11-26 09:55 | DI.CT.S_ITS ---
PROCEDURE: CT ANGIO ABDOMEN PELVIS INDICATIONS: Atherosclerosis of renal artery TECHNIQUE: After the administration of intravenous contrast, 2.5 mm sections acquired from the diaphragm to the iliac crests. 10 mm maximum intensity projection (MIP) coronal and sagittal reformats were then performed. For radiation dose reduction, the following was used: automated exposure control. COMPARISON: None. FINDINGS: Image quality: Diagnostic. Abdominal aorta: No aortic aneurysm or evidence of acute aortic syndrome. Mesenteric arteries: Patent without hemodynamically significant stenosis. Renal arteries: Patent without hemodynamically significant stenosis. Lower chest: Unremarkable. ABDOMEN: Liver: No solid mass. Gallbladder: No radiopaque gallstones or wall thickening. Biliary ducts: No biliary dilation. Pancreas: No ductal dilation. Spleen: Size is within normal limits. Adrenal Glands: No adrenal nodules. Kidneys and Ureters: No hydronephrosis. No solid mass. No complex renal cystic lesion which requires follow up. Stomach and Bowel: Normal colonic caliber, without significant wall thickening. Nonvisualized appendix Peritoneum: No abnormal intraperitoneal fluid. No free air. Ventral Wall: No hernia. Abdominal Nodes: No retroperitoneal or mesenteric adenopathy by size criteria. Vessels: Aorta, as above. Normal IVC. PELVIS: Pelvic Organs: Unremarkable. Several follicles seen in the right ovary. Bladder: Unremarkable. Pelvic Nodes: No enlarged lymph nodes. Miscellaneous: No inguinal hernias are seen. Bones: No aggressive osseous abnormality. IMPRESSION: No evidence of renal arterial stenosis Unremarkable CT of the abdomen and pelvis Dictated by: Ryne Thomas M.D. on 11/26/2023 at 11:07 Approved by: Ryne Thomas M.D. on 11/26/2023 at 11:17
== END ==
PROVIDERS: PCP Family Medicine; Referring Provider Surgery Vascular Surgery; Visit Provider Surgery Vascular Surgery
DX: I70.1 Atherosclerosis of renal artery (principal)
CPT/HCPCS: 74174; Q9967

== ENCOUNTER → 2023-12-05 12:30 | Outpatient (CLI) | payer OTHER, SELFPAY ==
[2023-12-05 13:52] LABS: Alanine Aminotransferase 23 IU/L (<35); Albumin 4.4 g/dL (3.5-5.0); Albumin Globulin Ratio 1.3 (1.0-2.8); Alkaline Phosphatase 47 U/L (38-126); Aspartate Aminotransferase 31 IU/L (14-36); BUN Creatinine Ratio 16.7 (6-22); Bilirubin Total 0.5 mg/dL (0.2-1.3); Blood Urea Nitrogen 12 mg/dL (7-17); Calcium 9.9 mg/dL (8.4-10.2); Carbon Dioxide 28 mmol/L (22-32); Chloride 103 mmol/L (98-107); Estimated Glomerular Filt Rate > 60 mL/min (>60); Globulin 3.4 g/dL (1.7-4.1); Glucose 89 mg/dL (70-100); HEMOLYSIS < 15 (0-50); Potassium 4.7 mmol/L (3.4-5.1); Sodium 138 mmol/L (137-145); Total Protein 7.8 g/dL (6.3-8.2)
[2023-12-05 14:19] LABS: Thyroid Stimulating Hormone 0.699 uIU/mL (0.47-4.68)
[2023-12-14 15:44] LABS: Plama Renin, LC/MS/MS 3.8
[2023-12-14 15:45] LABS: Aldosterone/Renin Activity Rat 3.9
== END ==
PROVIDERS: PCP Family Medicine; Referring Provider Family Medicine; Visit Provider Family Medicine
DX: I10 Essential (primary) hypertension (principal); E03.9 Hypothyroidism, unspecified
CPT/HCPCS: 36415; 80053; 82088; 84244; 84443

== ENCOUNTER → 2023-12-11 14:37 | Outpatient (CLI) | payer OTHER, SELFPAY ==
--- NOTE | 2023-12-11 14:38 | DI.RAD.S_ITS ---
PROCEDURE: XR CHEST 2V INDICATIONS: cough TECHNIQUE: 2 views of the chest were acquired. COMPARISON: [facility], CR, XR CHEST 2V, 07/16/2022, 9:32. FINDINGS: Surgical changes and devices: None. Lungs and pleura: Lungs are clear. No pleural effusions or pneumothorax. Mediastinum: Mediastinal contours are normal. Heart size is normal. Bones and chest wall: No suspicious bony abnormalities. Soft tissues appear unremarkable. IMPRESSION: No acute cardiopulmonary process. Dictated by: Sukhwinder Hansen M.D. on 12/11/2023 at 17:48 Approved by: Sukhwinder Hansen M.D. on 12/11/2023 at 17:48
== END ==
PROVIDERS: PCP Family Medicine; Referring Provider Family Medicine; Visit Provider Family Medicine
DX: J18.9 Pneumonia, unspecified organism (principal)
CPT/HCPCS: 71046

== ENCOUNTER → 2023-12-19 08:03 | Outpatient (CLI) | payer OTHER, SELFPAY ==
[2023-12-23 07:01] LABS: Normetanephrine Total 358 ug/24 hr (131-612); Urine, Metanephrine 46 ug/L (Undefined); Urine, Normetanephrine 135 ug/L (Undefined)
[2023-12-25 05:25] LABS: Creatinine, 24 Urine 1078 mg/24 hr (800-1800); Creatinine,Urine 39.2 mg/dL (Not Estab.)
== END ==
PROVIDERS: PCP Family Medicine; Referring Provider Family Medicine; Visit Provider Family Medicine
DX: I10 Essential (primary) hypertension (principal)
CPT/HCPCS: 82088; 82570; 83835

== ENCOUNTER → 2023-12-21 10:06 | Outpatient (CLI) | payer OTHER, SELFPAY ==
[2023-12-21 11:03] LABS: Influenza A - CEPHEID Flu A NEGATIVE (NEGATIVE); Influenza B - CEPHEID Flu B NEGATIVE (NEGATIVE); Respiratory Syncytial Virus Negative (Negative)
[2023-12-21 11:25] LABS: COVID-19 CEPHEID 4-PLEX PCR Negative (Negative)
== END ==
PROVIDERS: PCP Family Medicine; Visit Provider Physician Assistant Medical
DX: R06.02 Shortness of breath
CPT/HCPCS: 0241U

== ENCOUNTER → 2023-12-21 10:14 | Outpatient (CLI) | payer OTHER, SELFPAY ==
--- NOTE | 2023-12-21 10:16 | DI.RAD.S_ITS ---
PROCEDURE: XR CHEST 2V INDICATIONS: Chest pain, short of breath TECHNIQUE: 2 views of the chest were acquired. COMPARISON: [facility], CT, CT ANGIO ABDOMEN PELVIS, 11/26/2023, 10:01. [facility], CR, XR CHEST 2V, 12/11/2023, 14:48. FINDINGS: Surgical changes and devices: None. Lungs and pleura: Mild streaky opacities can be seen involving the inferior aspects of both lungs. No pleural effusions or pneumothorax. Mediastinum: Mediastinal contours are normal. Heart size is normal. Bones and chest wall: No suspicious bony abnormalities. Soft tissues appear unremarkable. IMPRESSION: There are mild wispy opacities seen involving both lower lungs. Atelectasis is suspected, although differential diagnosis includes a mild degree of infiltrate. Please consider short-term follow-up. Dictated by: Rodriguez Duron M.D. on 12/21/2023 at 9:42 Approved by: Rodriguez Duron M.D. on 12/21/2023 at 9:44
== END ==
LOC: RAD 10:15
PROVIDERS: PCP Family Medicine; Referring Provider Physician Assistant Medical; Visit Provider Physician Assistant Medical
DX: R06.02 Shortness of breath (principal)
CPT/HCPCS: 0241U; 71046

== ENCOUNTER → 2024-01-21 16:42 | Outpatient (CLI) | payer OTHER, SELFPAY ==
--- NOTE | 2024-01-21 16:43 | DI.RAD.S_ITS ---
PROCEDURE: XR CHEST 2V INDICATIONS: SOB TECHNIQUE: 2 views of the chest were acquired. COMPARISON: [facility], CR, XR CHEST 2V, 12/21/2023, 10:15. FINDINGS: Surgical changes and devices: None. Lungs and pleura: Lungs are clear. No pleural effusions or pneumothorax. Mediastinum: Mediastinal contours are normal. Heart size is normal. Bones and chest wall: No suspicious bony abnormalities. Soft tissues appear unremarkable. IMPRESSION: No acute pulmonary process. Dictated by: Mena Durham M.D. on 01/21/2024 at 17:17 Approved by: Mena Durham M.D. on 01/21/2024 at 17:17
== END ==
LOC: RAD 16:42
PROVIDERS: PCP Family Medicine; Referring Provider Family Medicine; Visit Provider Family Medicine
DX: R06.02 Shortness of breath (principal)
CPT/HCPCS: 71046

== ENCOUNTER → 2024-06-25 08:12 | Outpatient (CLI) | payer OTHER, SELFPAY ==
--- NOTE | 2024-06-25 | DI.MG.S_ITS ---
BILATERAL DIGITAL SCREENING MAMMOGRAM 3D/2D WITH CAD: 06/25/2024 CLINICAL: Routine screening. Family history of breast cancer. Comparison is made to exams dated: 06/24/2023 mammogram, 06/17/2022 mammogram, and 06/08/2021 mammogram - [facility]. The breasts are heterogeneously dense, which may obscure small masses (category c / 51-75% glandular tissue). Current study was also evaluated with a Computer Aided Detection (CAD) system. No significant masses, calcifications, or other findings are seen in either breast. There has been no significant interval change. IMPRESSION: NEGATIVE There is no mammographic evidence of malignancy. A 1 year screening mammogram is recommended. Based on the Tyrer Cuzick model (a risk assessment model) the patient's lifetime risk is 13.7% and her 10 year risk is 2.9%. According to the ACR, ACS, and NCCN guidelines, an annual breast MRI exam along with mammogram is recommended if the patient's lifetime risk is 20% or greater. This exam was interpreted at Station ID: [id number]. NOTE: For mammograms, a report in lay terms will be sent to the patient. Approximately 15% of breast malignancies will not be visualized mammographically. In the management of a palpable breast mass, a negative mammogram must not discourage biopsy of a clinically suspicious lesion. Electronically Signed By: Aminah Martinez M.D., Ph.D. annie/rob:06/25/2024 22:46:14 letter sent: Normal Exam ACR BI-RADS Category 1: Negative
== END ==
PROVIDERS: PCP Family Medicine; Referring Provider Family Medicine; Visit Provider Family Medicine
DX: Z12.31 Encounter for screening mammogram for malignant neoplasm of breast (principal); Z80.3 Family history of malignant neoplasm of breast; R92.333 Mammographic heterogeneous density, bilateral breasts
CPT/HCPCS: 77063; 77067

== ENCOUNTER → 2024-09-24 08:24 | Outpatient (CLI) | payer OTHER, SELFPAY ==
[2024-09-24 09:06] LABS: Creatinine Urine Random 23.49 mg/dL
[2024-09-24 09:12] LABS: Microalbumin Urine Random < 0.6 mg/dL (0-1.6)
[2024-09-24 09:21] LABS: Alanine Aminotransferase 21 IU/L (<35); Albumin 4.4 g/dL (3.5-5.0); Albumin Globulin Ratio 1.4 (1.0-2.8); Alkaline Phosphatase 41 U/L (38-126); Aspartate Aminotransferase 30 IU/L (14-36); Bilirubin Total 0.5 mg/dL (0.2-1.3); Blood Urea Nitrogen 12 mg/dL (7-17); Calcium 9.8 mg/dL (8.4-10.2); Carbon Dioxide 22 mmol/L (22-32); Chloride 106 mmol/L (98-107); Cholesterol 209 mg/dL (140-199); Estimated Glomerular Filt Rate > 60 mL/min (>60); Globulin 3.1 g/dL (1.7-4.1); Glucose 95 mg/dL (70-100); HDL Cholesterol 63 mg/dL (40-60); HEMOLYSIS < 15 (0-50); LDL Cholesterol Calculated 125 mg/dL (<100); Potassium 4.3 mmol/L (3.4-5.1); Sodium 135 mmol/L (137-145); Total Protein 7.5 g/dL (6.3-8.2); Triglycerides 106 mg/dL (35-150)
[2024-09-24 09:54] LABS: Thyroid Stimulating Hormone 2.98 uIU/mL (0.47-4.68)
== END ==
LOC: LAB 08:26
PROVIDERS: PCP Family Medicine; Referring Provider Family Medicine; Visit Provider Family Medicine
DX: E03.9 Hypothyroidism, unspecified (principal); I10 Essential (primary) hypertension
CPT/HCPCS: 36415; 80053; 80061; 82043; 82570; 84443

== ENCOUNTER 2024-12-29 09:28 | Day surgery (SDC) | payer OTHER, SELFPAY ==
[2024-12-29 09:47] VITALS: BP 116/86; PULSE 74; RESP 16; TEMP 36.4; O2SAT 98
--- NOTE | 2024-12-29 09:50 | PM.HP.IH.1 ---
History of Present Illness History of Present Illness Date Patient Seen: 12/29/24 Chief complaint: Screening Colonoscopy Narrative: First screening colonoscopy. Second-degree relative in grandmother had colon cancer COUNTS INCLUDE 234 BEDS AT THE [facility] Medical History Bilateral lower abdominal pain Toe pain, bilateral Contusion of nail bed of toe Onychodystrophy Onychomycosis Rosacea Chicken pox Hyperthyroidism Surgical History Anesthesia History of appendectomy History of section Social History Smoking Status: Never smoker Meds Home Medications and Allergies Home Medications Medication Instructions Recorded Confirmed Type hydroxyzine HCl 25 mg tablet 25 mg PO BEDTIME insomnia #30 tabs 09/23/23 12/29/24 Rx lisinopril 2.5 mg tablet 2.5 mg PO DAILY #90 tabs 06/25/24 12/29/24 Rx doxepin 10 mg capsule 10 mg PO DAILY #90 caps 08/18/24 12/29/24 Rx sodium,potassium,mag sulfates 17.5 See Rx Instructions PO .COMPLEX 11/08/24 Rx gram-3.13 gram-1.6 gram oral soln #354 mL (Suprep Bowel Prep Kit) levothyroxine 125 mcg tablet 125 mcg PO DAILY #90 tabs 11/15/24 12/29/24 Rx Allergies Allergy/AdvReac Type Severity Reaction Status Date / Time Steroids AdvReac Headache Uncoded 12/29/24 09:43 Exam Narrative Exam Narrative: Oropharynx free of lesions Chest clear to auscultation percussion Cardiac exam reveals no S3 or murmur Assessment & Plan Assessment & Plan narrative: For screening colonoscopy. Risks, benefits, alternatives have been explained. Time-Based Coding :: [TOTAL MINUTES] spent with patient and on the chart (including review of chart, obtaining history, exam, reviewing outside data, placing orders, documenting exam and treatment plan, and counseling patient) on [DATE]. [employer] Document charge(s): No
--- NOTE | 2024-12-29 09:51 | PM.OP.COLON ---
Operative Date/Time/Diagnoses Date of procedure: 12/29/24 Pre-op diagnosis: See indication and findings Procedure & Clinicians Study performed: Colonoscopy Same procedure as scheduled: Yes Indications: Screening Surgeon: Kiana Donnelly Procedure Notes Procedure in detail: After informed consent was obtained the patient was placed in left lateral decubitus position. The video colonoscope was introduced the rectum slowly advanced cecum. On slow withdrawal mucosa was carefully examined. Preparation was good. The scope was removed. The patient tolerated procedure well. Blood loss none Complications none Sedation mac Findings 1. Normal colonoscopy to cecum Patient will need follow-up in 5-10 years
[2024-12-29] MEDS: ONDANSETRON 4 MG/2 ML INJ IV (09:58)
[2024-12-29] MEDS: LACTATED RINGERS 1,000 ML 84 ML IV (10:03)
[2024-12-29 10:41] VITALS: BP 108/65; PULSE 79; RESP 18; TEMP 36.6; O2SAT 100
[2024-12-29 10:46] VITALS: BP 132/91; PULSE 74; RESP 15; TEMP 36.4; O2SAT 99
== END 2024-12-29 11:06 | disposition home or self-care (01) ==
PROVIDERS: PCP Family Medicine; Referring Provider Internal Medicine Gastroenterology; Visit Provider Internal Medicine Gastroenterology
PROC: 0DJD8ZZ Inspection of Lower Intestinal Tract, Via Natural or Artificial Opening Endoscopic (ICD-10-PCS; CPT 45378; principal; 2024-12-29 10:30)
DX: Z12.11 Encounter for screening for malignant neoplasm of colon (principal)
CPT/HCPCS: 45378; J2405; J2704

== ENCOUNTER → 2025-03-03 15:22 | Outpatient (CLI) | payer OTHER, SELFPAY | PROVIDERS: PCP Family Medicine; Visit Provider Chiropractor | DX: R30.0 Dysuria (principal) | CPT/HCPCS: 87077; 87086 ==

== ENCOUNTER → 2025-03-10 09:25 | Outpatient (CLI) | payer OTHER, SELFPAY | PROVIDERS: PCP Family Medicine; Visit Provider Family Medicine | DX: N39.0 Urinary tract infection, site not specified (principal) | CPT/HCPCS: 87086 ==

== ENCOUNTER → 2025-05-31 | Outpatient (CLI) | payer OTHER, SELFPAY ==
--- NOTE | 2025-05-31 11:44 | DI.RAD.S_ITS ---
PROCEDURE: XR LUMBAR SPINE 2-3V INDICATIONS: low back pain TECHNIQUE: 2 views of the lumbar spine were acquired. COMPARISON: None. FINDINGS: Bones: 5 [id number] vertebrae are present. There is normal bony alignment. No vertebral body compression fractures. No suspicious bony lesions. Mild disc height loss with endplate sclerosis and spurring at the L4-L5 and L5-S1 level. Soft tissues: Overlying bowel gas pattern is normal. No suspicious soft tissue calcifications. IMPRESSION: Mild L4-L5 and L5-S1 disc degeneration. Dictated by: Alan Dixon [facility] Interpreted: Edgard Holt MD on 05/31/2025 at 13:03 Transcribed by: FRANK on 05/31/2025 at 13:04 Approved by: Edgard Holt M.D. on 06/01/2025 at 15:03
== END ==
PROVIDERS: PCP Family Medicine; Referring Provider Family Medicine; Visit Provider Family Medicine
DX: M51.360 Other intervertebral disc degeneration, lumbar region with discogenic back pain only (principal); M51.370 Other intervertebral disc degeneration, lumbosacral region with discogenic back pain only
CPT/HCPCS: 72100

== ENCOUNTER → 2025-06-29 16:00 | Outpatient (CLI) | payer OTHER, SELFPAY ==
--- NOTE | 2025-06-29 16:01 | DI.MG.S_ITS ---
MM screening mammo BI: 06/29/2025. BI-RADS: 1 CLINICAL: 50-year old female for bilateral screening mammogram. Tyrer-Cuzick lifetime risk of 15.2%. Current reported family history of breast cancer: mother. PRIOR EXAMS 06/25/2024, 06/24/2023, 06/17/2022, 06/08/2021, MAMMOGRAPHY TECHNIQUE: 2D and 3D (tomosynthesis) digital mammographic views obtained, with additional images as needed for full coverage. Current study was also evaluated with a Computer Aided Detection (CAD) system. DENSITY B. There are scattered areas of fibroglandular density. MAMMOGRAPHY FINDINGS Bilateral: No suspicious mass, asymmetry, microcalcification, or other abnormality seen. IMPRESSION: * No evidence of malignancy. RECOMMENDATIONS Bilateral * Annual screening mammography. OVERALL ASSESSMENT CATEGORY BI-RADS-1: Negative. The [employer] recommends annual screening mammography beginning at age 40 for women with average risk of breast cancer. ELECTRONICALLY SIGNED: Polo Polk M.D. on 06/30/2025 at 09:29:06 AM PT Interpreting Station ID: [id number]
== END ==
LOC: MAMMO 16:01
PROVIDERS: PCP Family Medicine; Referring Provider Family Medicine; Visit Provider Family Medicine
DX: Z12.31 Encounter for screening mammogram for malignant neoplasm of breast (principal); Z80.3 Family history of malignant neoplasm of breast
CPT/HCPCS: 77063; 77067

== ENCOUNTER → 2025-07-25 15:40 | Outpatient (CLI) | payer OTHER, SELFPAY ==
--- NOTE | 2025-07-25 15:41 | DI.MRI.S_ITS ---
PROCEDURE: MR LUMBAR SPINE WO CON INDICATIONS: low back pain with radiculopathy TECHNIQUE: Noncontrast sagittal T1 spin echo and T2 fast echo, sagittal STIR, and T2 fast spin echo through the lumbar spine. In cases with scoliosis, additional coronal T2 fast spin echo may be performed. COMPARISON: [facility], CR, XR LUMBAR SPINE 2-3V, 05/31/2025, 11:45. FINDINGS: Image quality: Excellent. Alignment and Curvature: There is normal bony alignment. Bone Marrow: Marrow is of normal overall signal. No acute vertebral body compression fractures. Spinal Cord: Conus medullaris terminates at the L1 level. Visualized cord demonstrates normal signal and size. Paraspinous Soft Tissues: No paravertebral masses. T12-L1: Normal appearance. L1-L2: Normal appearance. L2-L3: Loss of disc signal. Minimal, diffuse disc bulge. No central stenosis. No neural foraminal narrowing. No neural compression. L3-L4: Loss of disc signal. Mild, diffuse disc bulge. No central stenosis. No neural foraminal narrowing. No neural compression. L4-L5: Loss of disc signal. Mild, diffuse disc bulge. Mild bilateral facet hypertrophy. Small right central/right central disc extrusion. Extruded disc material abuts and compresses the traversing right L5 nerve root. Mild narrowing of the central canal. Mild bilateral neural foraminal narrowing. Disc annulus fissures. L5-S1: Slight loss of disc signal. Minimal, diffuse disc bulge. No central stenosis. No neural foraminal narrowing. No neural compression. IMPRESSION: Mild multilevel degenerative disc disease. Mild L4-L5 facet arthropathy. Small L4-L5 central/right central disc extrusion which abuts and compresses the traversing right L5 nerve root. No severe central canal stenosis. No severe neural foraminal stenosis. Dictated by: Lexy Olmedo MD, PhD on 07/26/2025 at 10:56 Approved by: Lexy Olmedo MD, PhD on 07/26/2025 at 11:00
== END ==
LOC: MRI 15:40
PROVIDERS: PCP Family Medicine; Referring Provider Family Medicine; Visit Provider Family Medicine
DX: M51.16 Intervertebral disc disorders with radiculopathy, lumbar region (principal); M47.26 Other spondylosis with radiculopathy, lumbar region; M48.061 Spinal stenosis, lumbar region without neurogenic claudication
CPT/HCPCS: 72148